=== PATIENT | male | born 1945 | race Caucasian/White ===

== ENCOUNTER → 2017-10-25 18:29 | Outpatient (CLI) | payer SELFPAY | PROVIDERS: Visit Provider Nurse Practitioner Adult Health | DX: R31.0 Gross hematuria (principal) | CPT/HCPCS: 87086; 87088; 87186 ==

== ENCOUNTER → 2017-11-15 06:32 | Outpatient (CLI) | payer MEDICARE, SELFPAY ==
--- NOTE | 2017-11-15 06:43 | CT_ITS ---
STUDY: CT ABDOMEN AND PELVIS WITH AND WITHOUT CONTRAST REASON FOR EXAM: Male, 72 years old. 3 week history of gross hematuria. History of colon cancer. RADIATION DOSAGE (If Supplied By Facility): CTDIvol = ( 27.32 ) mGy, DLP = ( 3590.92 ) mGycm TECHNIQUE: Transaxial images were obtained from the dome of the diaphragm to the symphysis pubis without oral contrast. 100mL ml of Isovue 300 contrast was administered. Sagittal and coronal images were reconstructed. Individualized dose optimization techniques were used for this CT. COMPARISON: None. FINDINGS: Small bilateral pleural effusions left greater than right. Small amount of fluid is seen in the left major fissure. Mild pericardial thickening suggestive of a small pericardial effusion worse along the posterior dependent aspect of the heart. Coronary artery calcification. Normal liver. The patient is status post cholecystectomy. Normal spleen. Normal pancreas. Normal bilateral adrenal glands. 3 mm nonobstructive calculus in the lower pole calyx of the right kidney. There is evidence of a 1 cm calculus in the left renal pelvis. Nonspecific bilateral perinephric stranding. There is a 2.9 cm x 3.1 cm rounded soft tissue mass with peripheral calcification in the left upper quadrant within the peritoneal fat adjacent to the left kidney. There is a small hiatal hernia. Normal small intestine. Normal colon. The patient is status post appendectomy. There is diffuse atherosclerotic calcification of the abdominal aorta, without a demonstrated aneurysm. Normal inferior vena cava. There is borderline retroperitoneal lymphadenopathy with enlarged nodes no greater than 10mm in the short axis diameter. There is evidence of small lymph nodes within the root of the mesentery. Increased markings within the root of the mesentery suggestive of a possible vascular congestion. Distended urinary bladder. Bilateral bladder diverticula are seen. There is evidence of a 1.3 cm x 1.4 cm stellate calculus at the base of the bladder on the left side. There is enlargement of the prostate gland. This causes indentation at the bladder base. Large ventral hernia containing nonobstructive bowel loops. There is evidence of prior surgery in the region of the transverse colon. There are diffuse degenerative changes of the visualized lumbar spine. CT/CT Abd/Pelvis W/WO Contrast IMPRESSION: Multiple findings as described. Bilateral pleural effusions and pericardial effusion. Small nonobstructive right intrarenal calculus. 1 cm, this in the left renal pelvis without significant obstruction. Multiple findings within the peritoneal fat. With the patient's history of the colon cancer and resection, omental metastasis should be ruled out. Electronically Signed: Iván Prieto MD at 15:08 EDT Tel [phone], Service support ,
[2017-11-15 07:11] LABS: CREATININE FINGERSTICK 0.6 mg/dL (0.70-1.30); EGFR FINGERSTICK > 60.0000 mL/min (>60)
[2017-11-15 09:11] LABS: PSA,Total- Diagnostic 2.04 ng/mL (0.0-4.0)
== END ==
PROVIDERS: Family Provider Family Medicine; PCP Family Medicine; Visit Provider Nurse Practitioner Adult Health
DX: R97.20 Elevated prostate specific antigen [PSA] (principal); R31.0 Gross hematuria; N40.0 Benign prostatic hyperplasia without lower urinary tract symptoms
CPT/HCPCS: 36415; 74178; 84153; Q9967

== ENCOUNTER → 2017-12-09 10:07 | Outpatient (CLI) | payer MEDICARE, SELFPAY ==
[2017-11-15 08:46] VITALS: BP 185/98; PULSE 77; RESP 18; TEMP 36.9; O2SAT 98; BMI 37.0
--- NOTE | 2017-11-15 08:57 | EKG12_ITS ---
Test Reason : Blood Pressure : / mmHG Vent. Rate : 074 BPM Atrial Rate : 072 BPM P-R Int : 000 ms QRS Dur : 142 ms QT Int : 470 ms P-R-T Axes : 000 -60 -38 degrees QTc Int : 521 ms Poor data quality, interpretation may be adversely affected Atrial fibrillation with premature ventricular or aberrantly conducted complexes Right bundle branch block Left anterior fascicular block Bifascicular block Abnormal ECG Confirmed by MAURISIO MADRID, SKYLAR ([id number]), tape editor JULIO NEGRETE ([id number]) on 11/17/2017 12:05:22 PM Referred By: Anish Gibbs Confirmed By:SKYLAR FORDE MD
[2017-11-15 10:19] LABS: Absolute Lymphocyte Count 2.15 X10^3/ul (0.83-4.51); Absolute Neutrophil Count 2.3 X10^3/uL (2.0-7.7); Basophil# 0.03 X10^3/uL; Basophil% 0.6 % (0-1); Eosinophil# 0.22 X10^3/uL; Eosinophils% 4.3 % (0-5); Hematocrit 28.5 % (40-54); Hemoglobin 8.3 g/dl (13.0-16.5); Lymphocyte # 2.15 X10^3/ul (4.0); Lymphocyte % 41.6 % (19-41); Mean Corp Hgb Conc 29.1 g/gl (32-36); Mean Corpuscular Hgb 22.2 pg (27.0-32.0); Mean Corpuscular Volume 76.2 fL (80-94); Mean Platelet Vol. 10.4 fl (6.2-12.0); Monocyte# 0.44 X10^3/uL; Monocyte% 8.5 % (0-10); Neutrophil # 2.33 X10^3/uL (2.7-7.7); Platelet Count 152 K/mm3 (150-450); RBC Distribution Width SD 52.4 fl (35.1-43.9); Red Blood Count 3.74 M/mm3 (4.6-6.2); White Blood Count 5.2 K/mm3 (4.4-11.0)
[2017-11-15 10:20] LABS: Differential Indicated SCAN CRITERIA MET; International Normalized Ratio 1.4; POSITIVE COUNT NO; POSITIVE DIFFERENTIAL NO; POSITIVE MORPHOLOGY YES; Prothrombin Time (Protime)PT. 17.4 SECONDS (11.7-14.9)
[2017-11-15 10:21] LABS: Partial Thromboplast Time 33.3 Seconds (24.1-36.2)
[2017-11-15 10:41] LABS: Anisocytosis 1+; Hypochromasia 2+; Platelet Estimate ADEQUATE (ADEQ); Platelet Morphology LARGE; Polychromasia 1+
[2017-11-15 10:44] LABS: AST(SGOT) 45 U/L (15-37); Alanine Aminotransfer ALT/SGPT 30 U/L (16-61); Albumin, Serum 2.9 g/dL (3.2-5.0); Alkaline Phosphatase 74 U/L (45-117); Anion Gap 9 (5-15); BUN 22 mg/dL (7-18); BUN/Creat Ratio 27.8 RATIO (10-20); Bilirubin, Direct 0.25 mg/dL (0.00-0.30); Calcium,Total 7.9 mg/dL (8.5-10.1); Chloride 106 mmol/L (98-107); Creatinine, Serum 0.79 mg/dL (0.70-1.30); EST Glomerular Filtration Rate 103 mL/min (>60); Est Glom Filt Rate - Afr Amer 124 mL/min (>60); Estimated Creatinine Clearance 65.55 ml/min; Globulin 3.8 g/dL (2.2-4.2); Glucose 90 mg/dL (74-106); Potassium 3.4 mmol/L (3.5-5.1); Protein, Total 6.7 g/dL (6.4-8.2); Sodium Level 144 mmol/L (136-145)
[2017-11-30 08:10] LABS: International Normalized Ratio 3.3; Prothrombin Time (Protime)PT. 33.5 SECONDS (11.7-14.9)
[2017-11-30 08:41] VITALS: BP 176/101; PULSE 69; RESP 16; TEMP 36.9; O2SAT 97; BMI 37.0
== END ==
PROVIDERS: Anesthesiology; Family Provider Family Medicine; PCP Family Medicine; Visit Provider Urology
DX: Z01.818 Encounter for other preprocedural examination (principal)
CPT/HCPCS: 80048; 80076; 85025; 85610; 85730; 86850; 86900; 86920; 86922; 93005; J7120

== ENCOUNTER → 2017-12-16 08:19 | Outpatient (CLI) | payer MEDICARE, SELFPAY | PROVIDERS: Family Provider Family Medicine; PCP Family Medicine; Visit Provider Internal Medicine Hematology & Oncology | DX: R59.1 Generalized enlarged lymph nodes (principal) | CPT/HCPCS: 76882 ==

== ENCOUNTER → 2018-01-03 17:03 | Outpatient (CLI) | payer MEDICARE, SELFPAY | PROVIDERS: Family Provider Family Medicine; PCP Family Medicine; Visit Provider Urology | DX: R82.99 Other abnormal findings in urine (principal) | CPT/HCPCS: 87086 ==